=== PATIENT | male | born 1945 | race Hispanic/Latino ===

== ENCOUNTER 2019-08-19 15:01 | Emergency (ER) | payer OTHER ==
--- NOTE | 2019-08-19 15:16 | Emergency Department Report ---
Blank Doc - Documentation Documentation: 74-year-old male that presents with generalized abdominal pain. Denies any n/v. This initial assessment/diagnostic orders/clinical plan/treatment(s) is/are subject to change based on patient's health status, clinical progression and re- assessment by fellow clinical providers in the ED. Further treatment and workup at subsequent clinical providers discretion. Patient/guardians urged not to elope from the ED as their condition may be serious if not clinically assessed and managed. Initial orders include: 1- Patient sent to [facility] for further evaluation and treatment 2- labs 3- Xray AB
--- NOTE | 2019-08-19 16:37 | XRay Report ---
CLINICAL DATA: abd pain TECHNICAL DATA: PA chest, AP supine abdomen, upright or left lateral decubitus abdomen. FINDINGS: The cardiac silhouette and pulmonary vasculature are normal. The lungs are clear and well expanded. T here is no evidence of focal consolidation, pneumothorax, or pleural effusion. Bowel gas pattern is nonobstructive. There is no free intraperitoneal air. There are no abnormal calc ifications. Moderate amount of feces is present in the rectum IMPRESSION: No acute radiographic abnormality of the chest and abdomen. Signer Name: Crow Bhakta MD Signed: 08/19/2019 4:32 PM Workstation Name: [id number]
[2019-08-19 16:46] LABS: Basophils % (Auto) 0.4 % (0.0-1.8); Eosinophils # (Auto) 0.1 K/mm3 (0.0-0.4); Eosinophils % (Auto) 0.8 % (0.0-4.3); Hematocrit 45.9 % (35.5-45.6); Hemoglobin 15.4 gm/dl (11.8-15.2); Lymphocytes % (Auto) 9.3 % (13.4-35.0); Mean Corpuscular HGB Conc 34 % (32-34); Mean Corpuscular Volume 96 fl (84-94); Monocytes # (Auto) 0.6 K/mm3 (0.0-0.8); Monocytes % (Auto) 5.5 % (0.0-7.3); Red Blood Count 4.79 M/mm3 (3.65-5.03); Red Cell Distribution Width 13.5 % (13.2-15.2)
[2019-08-19 16:50] LABS: Platelet Count 192 K/mm3 (140-440)
[2019-08-19 17:05] LABS: Alanine Aminotransferase 28 units/L (7-56); Albumin 4.5 g/dL (3.9-5); BUN/Creatinine Ratio 20; Blood Urea Nitrogen 20 mg/dL (9-20); Hemolysis Index 12
--- NOTE | 2019-08-19 17:25 | Emergency Department Report ---
ED Abdominal Pain HPI - General Chief Complaint: Abdominal Pain Stated Complaint: PAIN/CONSTIPATION Time Seen by Provider: 08/19/19 15:15 Source: patient Mode of arrival: Ambulatory Limitations: No Limitations - History of Present Illness Initial Comments: This is a 74-year-old male who presents to the emergency room with sensation of constipation and abdominal cramping for 4 hours. Past medical history of hyperlipidemia and hypertension. Patient states feel impacted. He is drinking prune juice with no improvement of symptoms. Patient reports abdominal cramps are intermittent and diffuse. He denies fever, chills, nausea, vomiting, or urinary symptoms. MD Complaint: abdominal pain Onset/Timin -: hour(s) Location: diffuse Radiation: none Migration to: no migration Severity: moderate Severity scale (0 -10): 8 Quality: cramping Consistency: intermittent Improves With: nothing Worsens With: nothing Associated Symptoms: constipation - Related Data Allergies Allergy/AdvReac Type Severity Reaction Status Date / Time No Known Allergies Allergy Unverified 08/19/19 15:16 ED Review of Systems ROS: Stated complaint: PAIN/CONSTIPATION Other details as noted in HPI Constitutional: denies: chills, fever Respiratory: denies: cough, shortness of breath, wheezing Cardiovascular: denies: chest pain, palpitations Gastrointestinal: constipation. denies: abdominal pain, nausea, diarrhea Genitourinary: denies: urgency, dysuria Musculoskeletal: denies: back pain, joint swelling, arthralgia Skin: denies: rash, lesions Neurological: denies: headache, weakness, paresthesias Psychiatric: denies: anxiety, depression ED Past Medical Hx - Past Medical History Previous Medical History?: No - Surgical History Past Surgical History?: No - Social History Smoking Status: Never Smoker Substance Use Type: Alcohol ED Physical Exam - General Limitations: No Limitations General appearance: alert, in no apparent distress, obese - Respiratory Respiratory exam: Present: normal lung sounds bilaterally. Absent: respiratory distress - Cardiovascular Cardiovascular Exam: Present: regular rate, normal rhythm. Absent: systolic murmur, diastolic murmur, rubs, gallop - GI/Abdominal GI/Abdominal exam: Present: soft, normal bowel sounds. Absent: distended, tenderness, guarding, rebound, rigid, organomegaly - Rectal Rectal exam: Present: fecal impaction - Neurological Exam Neurological exam: Present: alert, oriented X3, normal gait - Psychiatric Psychiatric exam: Present: normal affect, normal mood - Skin Skin exam: Present: warm, dry, intact, normal color. Absent: rash ED Course Vital Signs 08/19/19 08/19/19 15:09 15:53 Temperature 97.4 F L Pulse Rate 74 Respiratory 16 18 Rate O2 Sat by Pulse 94 Oximetry ED Medical Decision Making - Lab Data Result diagrams: 08/19/19 16:04 08/19/19 16:04 Lab Results 08/19/19 08/19/19 Range/Units 16:04 16:04 WBC 11.0 (4.5-11.0) K/mm3 RBC 4.79 (3.65-5.03) M/mm3 Hgb 15.4 H (11.8-15.2) gm/dl Hct 45.9 H (35.5-45.6) % MCV 96 H (84-94) fl MCH 32 (28-32) pg MCHC 34 (32-34) % RDW 13.5 (13.2-15.2) % Plt Count 192 (140-440) K/mm3 Lymph % (Auto) 9.3 L (13.4-35.0) % [place] % (Auto) 5.5 (0.0-7.3) % Eos % (Auto) 0.8 (0.0-4.3) % Baso % (Auto) 0.4 (0.0-1.8) % Lymph # 1.0 L (1.2-5.4) K/mm3 [place] # 0.6 (0.0-0.8) K/mm3 Eos # 0.1 (0.0-0.4) K/mm3 Baso # 0.0 (0.0-0.1) K/mm3 Seg Neutrophils % 84.0 H (40.0-70.0) % Seg Neutrophils # 9.3 H (1.8-7.7) K/mm3 Sodium 136 L (137-145) mmol/L Potassium 3.9 (3.6-5.0) mmol/L Chloride 100.9 (98-107) mmol/L Carbon Dioxide 18 L (22-30) mmol/L Anion Gap 21 mmol/L BUN 20 (9-20) mg/dL Creatinine 1.0 (0.8-1.5) mg/dL Estimated GFR > 60 ml/min BUN/Creatinine Ratio 20 % Glucose 126 H (75-100) mg/dL Calcium 9.0 (8.4-10.2) mg/dL Total Bilirubin 0.60 (0.1-1.2) mg/dL AST 25 (5-40) units/L ALT 28 (7-56) units/L Alkaline Phosphatase 103 (35-129) units/L Total Protein 7.3 (6.3-8.2) g/dL Albumin 4.5 (3.9-5) g/dL Albumin/Globulin Ratio 1.6 % - Radiology Data Radiology results: report reviewed CLINICAL DATA: abd pain TECHNICAL DATA: PA chest, AP supine abdomen, upright or left lateral decubitus abdomen. FINDINGS: The cardiac silhouette and pulmonary vasculature are normal. The lungs are clear and well expanded. There is no evidence of focal consolidation, pneumothorax, or pleural effusion. Bowel gas pattern is nonobstructive. There is no free intraperitoneal air. There are no abnormal calcifications. Moderate amount of feces is present in the rectum IMPRESSION: No acute radiographic abnormality of the chest and abdomen. - Medical Decision Making Patient examined by me. No distress noted. Vitals stable. Obtained labs and x- ray of chest and abdomen. All labs are unremarkable. On rectal exam there is impaction of stool. X-ray of abdomen findings of moderate amount of feces is present in the rectum. Patient given soapsuds and fleet enema. Patient reports passing large amount of stool and feels much better. Instructed to take MiraLAX and stool softeners daily to prevent constipation. Follow up with his primary care doctor. Patient discharged home stable. Critical care attestation.: If time is entered above; I have spent that time in minutes in the direct care of this critically ill patient, excluding procedure time. ED Disposition Clinical Impression: Constipation by outlet obstruction, Abdominal cramping, generalized Disposition: DC-01 TO HOME OR SELFCARE Is pt being admited?: No Condition: Stable Instructions: High Fiber Diet (ED), Constipation (ED) Additional Instructions: Increase fiber intake with foods and/or metamucil. Increase water intake and drink or eat prunes. Take colace daily to soften stool. Follow up with primary care doctor. Referrals: [facility], [facility] [Provider Group] - 3-5 Days [facility] [Provider Group] - 3-5 Days DEVEAU,NEREYDA LILIAN, MD [Referring] - 3-5 Days Forms: Work/School Release Form(ED) Time of Disposition: 17:43
[2019-08-19 18:31] VITALS: BP 148/74
== END 2019-08-19 18:00 | disposition home or self-care (01) ==
LOC: ED 15:01
DX: K59.02 Outlet dysfunction constipation (principal)
CPT/HCPCS: 36415; 74022; 80053; 85025